=== PATIENT | female | born 1960 | race Native Hawaiian/Other Pacific Islander ===

== ENCOUNTER → 2016-07-26 | Outpatient (CLI) | payer OTHER ==
--- NOTE | 2016-07-26 10:07 | WWHP ---
DATE OF SERVICE: 07/26/2016 CHIEF COMPLAINT: The patient is here for her routine gynecologic exam. HPI: This is a 55-year-old G3, P2-0-1-2 with an LMP of 04/21/2016. The patient states her periods have become less frequent now about every 3 to 6 months. She states that she still can have menstrual-type symptoms such as bloating or cramps around the time when she thinks she is suppose to have a period. This can last up to 3 days. She states they are not very severe and they do go away within a few days. The patient has had some hot flashes, but they are not very bad. History has been obtained through a ornithology teacher who is her daughter, Catrina. She is otherwise without gynecologic complaints. PAST MEDICAL HISTORY: Chronic hypertension and elevated cholesterol. MEDICATIONS: 1. Atenolol 100 mg daily. 2. Fenofibrate 1 daily. ALLERGIES: No known drug allergies. PAST SURGICAL HISTORY: Right breast biopsy in 2002 and another breast biopsy on the left side in 2014, these were benign, colonoscopy in 07/2014 and laparoscopic cholecystectomy in 2015. 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 She has no history of STDs. SOCIAL HISTORY: She denies tobacco and drug use and rarely drinks alcohol. She has been since 1999 and this is her second marriage. She previously was a . She continues to work at a [employer] during the summer. She was originally from [place], but moved to [place] in 1999. FAMILY HISTORY: Unchanged from the 2015 H&P. REVIEW OF SYSTEMS: Weight has been stable. She denies respiratory, cardiac problems. GI: She does have history of constipation and hemorrhoids and continues to have some problems with constipation. PHYSICAL EXAM: Blood pressure 119/57. Height 5 feet 2 inches. Weight 172 pounds. Temperature 96.2, pulse 51. This is a well-developed, well-nourished female who is alert and oriented x3 in no acute distress. The patient speaks primarily Indonesian and her daughter has been translating. HEENT is within normal limits. NECK: Supple without mass or thyromegaly. CHEST AND LUNGS: Clear to auscultation. HEART: Regular rate and rhythm. Breasts are without mass or discharge. Axillary exam is negative for adenopathy. BACK: Negative for CVA tenderness. ABDOMEN: Soft, nontender, without palpable masses. PELVIC EXAM: Normal external genitalia. Cervix and vagina appear normal. There is no significant atrophy or evidence of prolapse. The uterus is midposition, nongravid size and nontender. There are no palpable adnexal masses or tenderness. Rectovaginal exam is negative for mass or tenderness and is negative for occult blood. EXTREMITIES: Nontender. IMPRESSION: A 55-year-old perimenopausal female with oligomenorrhea and mild vasomotor symptoms. PLAN: 1. Pap smear was deferred, since she had a normal one less than 2 years ago. 2. Self breast examination was discussed. 3. Obtain the results of her bilateral breast ultrasound done on 07/13/2016. This was done the day of her mammogram. 4. Osteoporosis prevention was discussed. 5. She will return in one year.
== END | disposition home or self-care (01) ==

== ENCOUNTER → 2017-10-03 | Outpatient (CLI) | payer OTHER ==
[2017-10-03 10:28] VITALS: BP 117/50; PULSE 54; TEMP 97.8; BMI 29.9
--- NOTE | 2017-10-03 11:11 | P.HPOB ---
History of Present Illness H&P Date: 10/03/17 Chief Complaint: The patient is here for her routine gynecologic exam and mammogram. This is a 57-year-old with an LMP of 2016. The patient denies any postmenopausal bleeding. She denies any significant hot flashes. She is complaining of occasional vulvar pruritus. She has noticed this over the past few days. She denies any vaginal discharge. The patient's daughter,Catrina, is translating for her since she speaks very little Bangladeshi. Review of Systems She has lost about 3 pounds since last year. Respiratory: she states she occasionally feels slightly short of breath. She denies any cardiac problems. G.I. she has had some uncomfortable hemorrhoids. Past Medical History Past Medical History: GERD/Reflux, Hyperlipidemia, Hypertension Additional Past Medical History / Comment(s): currently having abdominal pain and nausea,hx hemorrhoids,varicose veins,steroids in Jun 2015 History of Any Multi-Drug Resistant Organisms: None Reported Past Surgical History: Tubal Ligation Additional Past Surgical History / Comment(s): BREAST BX BENIGN Past Anesthesia/Blood Transfusion Reactions: No Reported Reaction Past Psychological History: No Psychological Hx Reported Smoking Status: Never smoker Past Alcohol Use History: None Reported Past Drug Use History: None Reported Additional History: She has been since 1999 and this is her 2nd marriage. She was previously a . During the summer she works at the [employer]. She was originally from [place] but moved to [place] in 1999. - Past Family History Mother Family Medical History: Diabetes Mellitus Father Family Medical History: No Reported History Additional Family Medical History / Comment(s): in [facility] Medications and Allergies Home Medications Medication Instructions Recorded Confirmed Type Atenolol [Tenormin] 100 mg PO HS 08/07/14 10/03/17 History Fenofibrate 120 mg PO DAILY 08/07/14 10/03/17 History Ergocalciferol [Vitamin D2 1 cap PO DAILY 10/03/17 10/03/17 History (DRISDOL)] Allergies Allergy/AdvReac Type Severity Reaction Status Date / Time No Known Allergies Allergy Verified 09/08/15 15:42 Exam - Vital Signs Vital signs: Vital Signs Temp Pulse BP 10/03/17 10:21 97.8 F 54 L 117/50 Intake and Output 10/02/17 10/03/1710/03/18 22:59 06:59 14:59 Other: Weight 76.657 kg Height 5'3", BMI 30. This is a well-developed well-nourished female who is alert and oriented times 3 in no acute distress. HEENT: Within normal limits. NECK: Supple without mass or thyromegaly. CHEST AND LUNGS: Clear to auscultation. HEART: Regular rate and rhythm. BREASTS: Are without mass or discharge. AXILLARY EXAM: Negative for adenopathy. BACK: Negative for CVA tenderness. ABDOMEN: Soft, nontender, without palpable masses. PELVIC EXAM: Normal external genitalia with mild atrophy and no significant erythema or lesions. Cervix and vagina appear normal with mild atrophy. There is no unusual discharge. There is no evidence of prolapse. The uterus is midposition, nongravid size and nontender. There are no palpable adnexal masses or tenderness. RECTAL EXAM: rectal exam was refused by the patient because of her hemorrhoids. EXTREMITIES: Nontender. IMPRESSION: 1. 57-year-old menopausal female with recent vulvar pruritus without any significant physical findings at this time. There is no evidence of vaginitis. PLAN: 1. Pap smear was performed. 2. Self breast examination was discussed. 3. Screening mammogram will be done today. 4. Kenalog 0.1% clean b.i.d. PRN. An e-prescription will be sent to [facility] in [place]. 5. She will return in one year.
--- NOTE | 2017-10-04 12:04 | MM ---
Reason for exam: screening (asymptomatic). Last mammogram was performed 1 year and 3 months ago. History: Patient is postmenopausal. Benign US biopsy breast VAD LT of the left breast, May 06, 2015. Benign excisional biopsy of the right breast, 2002. Physical Findings: A clinical breast exam by your physician is recommended on an annual basis and results should be correlated with mammographic findings. MG 3D Screening Mammo W/Cad Bilateral CC and MLO view(s) were taken. Prior study comparison: July 13, 2016, bilateral MG 3d diag mammo w/cad TRINO. May 06, 2015, left breast MG diagnostic mammo LT wo CAD. The breast tissue is heterogeneously dense. This may lower the sensitivity of mammography. No suspicious abnormality. Left biopsy marker is noted. No significant changes when compared with prior studies. ASSESSMENT: Negative, BI-RAD 1 RECOMMENDATION: Routine screening mammogram of both breasts in 1 year.
== END | disposition home or self-care (01) ==
LOC: WWCWWP 09:58
PROVIDERS: ATTEND Obstetrics & Gynecology
DX: Z12.31 Encounter for screening mammogram for malignant neoplasm of breast (principal)
CPT/HCPCS: 77063; 77067

== ENCOUNTER 2017-11-03 11:16 | Day surgery (SDC) | payer OTHER ==
[2017-11-01 11:03] VITALS: BMI 31.1
[~2017-11-03 11:16] MED LIST: LACTATED RINGERS 1,000 ML IV SCH; LIDOCAINE 1% 20 ML VIAL (10MG/ML) FOR IV START INTRADERMA PRN; MIDAZOLAM 2 MG/2 ML VIAL IV PRN
[2017-11-03 11:55] VITALS: TEMP 97.2
[2017-11-03] MEDS ORDERED: LIDOCAINE 1% 20 ML VIAL (10MG/ML) FOR IV START INTRADERMA ONE (11:55)
[2017-11-03] MEDS ORDERED: LIDOCAINE 1% INJ 10MG/ML (20 ML MDV) ONE (12:45)
[2017-11-03] MEDS ORDERED: PROPOFOL 10 MG/ML 20 ML VIAL IV ONE (12:45)
--- NOTE | 2017-11-03 12:48 | P.GSHP ---
History of Present Illness H&P Date: 11/03/17 Chief Complaint: Screening colonoscopy This a 57-year-old female referred from Dr. eduardo. Patient presents today for screening colonoscopy. She denies a significant GI complaints. Past Medical History Past Medical History: GERD/Reflux, Hyperlipidemia, Hypertension Additional Past Medical History / Comment(s): HAS hemorrhoids, BLEEDING. Varicose Veins. History of Any Multi-Drug Resistant Organisms: None Reported Past Surgical History: Tubal Ligation Additional Past Surgical History / Comment(s): BREAST BX BENIGN. COLONOSCOPY, EGD. Past Anesthesia/Blood Transfusion Reactions: No Reported Reaction Smoking Status: Never smoker - Past Family History Mother Family Medical History: Diabetes Mellitus Father Family Medical History: No Reported History Additional Family Medical History / Comment(s): in [facility] Medications and Allergies Home Medications Medication Instructions Recorded Confirmed Type Atenolol [Tenormin] 100 mg PO HS 08/07/14 11/03/17 History Fenofibrate 120 mg PO DAILY 08/07/14 11/03/17 History Ergocalciferol [Vitamin D2 1 cap PO Q7D 10/03/17 11/03/17 History (OPAL)] Allergies Allergy/AdvReac Type Severity Reaction Status Date / Time No Known Allergies Allergy Verified 11/01/17 10:31 Surgical - Exam Vital Signs Temp Pulse Resp BP Pulse Ox 97.2 F L 61 16 103/71 96 11/03/17 11:53 11/03/17 11:53 11/03/17 11:53 11/03/17 11:53 11/03/17 11:53 - General well developed, no distress - Eyes PERRL - ENT normal pinna - Neck no masses - Respiratory normal expansion - Cardiovascular Rhythm: regular - Abdomen Abdomen: soft, non tender Assessment and Plan Assessment: We'll perform screening colonoscopy.
--- NOTE | 2017-11-03 13:03 | P.OP ---
Date of Procedure: 11/03/17 Preoperative Diagnosis: Screening colonoscopy Postoperative Diagnosis: Normal colon Procedure(s) Performed: Colonoscopy Anesthesia: MAC Surgeon: Jacinto De Jesus Pathology: none sent Condition: stable Disposition: PACU Description of Procedure: PROCEDURE: The patient was placed on the endoscopy table in the lateral position. Digital rectal examination was performed which revealed no abnormalities. Flexible colonoscope was then placed in the patient's anus and passed throughout the entire colon. The ileocecal valve was visualized. The cecum, ascending, transverse, descending and sigmoid colon were normal. The rectum was normal as well. There were no masses, polyps or diverticula noted in the entire colon. SUMMARY OF FINDINGS: Normal colonoscopy.
[2017-11-03 13:26] VITALS: BP 125/72; PULSE 61; RESP 16
== END 2017-11-03 13:54 | disposition home or self-care (01) ==
LOC: ORWHC2ENDO 11:16
PROVIDERS: ATTEND Surgery
DX: Z12.11 Encounter for screening for malignant neoplasm of colon (principal); K21.9 Gastro-esophageal reflux disease without esophagitis; E78.5 Hyperlipidemia, unspecified; I10 Essential (primary) hypertension; K64.9 Unspecified hemorrhoids; Z79.899 Other long term (current) drug therapy
CPT/HCPCS: J2001; J2704; G0121; 45378

== ENCOUNTER → 2018-06-27 | Outpatient (CLI) | payer OTHER ==
--- NOTE | 2018-06-27 22:48 | US ---
EXAMINATION TYPE: US transvaginal DATE OF EXAM: 06/27/2018 COMPARISON: 2010 us CLINICAL HISTORY: N95.0 Post menopausal bleeding. TECHNIQUE: Transvaginal (TV). Date of LMP: 4 years prior EXAM MEASUREMENTS: Uterus: 6.7 x 2.9 x 4.2 cm Endometrial Stripe: 0.8 cm Right Ovary: 1.6 x 1.1 x 1.2 cm Left Ovary: obscured by overlying bowel/atrophy 1. Uterus: Anteverted, probable fibroid measuring 2.1 x 2.1 x 2.1cm 2. Endometrium: thick for post menopausal patient 3. Right Ovary: wnl 4. Left Ovary: obscured by overlying bowel/atrophy 5. Bilateral Adnexa: wnl 6. Posterior cul-de-sac: wnl Markedly heterogeneous uterus is seen, endometrium is poorly defined but felt thickened up to 8 mm. N o free fluid is seen in pelvic cul-de-sac. IMPRESSION: Poorly defined but suspected mildly thickened endometrium, neoplasm cannot be excluded. F urther investigation with sampling is warranted.
== END ==
LOC: RADUSWWP 15:43
PROVIDERS: ATTEND Obstetrics & Gynecology
DX: R93.89 Abnormal findings on diagnostic imaging of other specified body structures (principal)
CPT/HCPCS: 76830

== ENCOUNTER → 2018-07-16 | Outpatient (CLI) | payer OTHER ==
--- NOTE | 2018-07-16 11:45 | CT ---
EXAMINATION TYPE: CT abdomen pelvis w con DATE OF EXAM: 07/16/2018 COMPARISON: None INDICATION: Abdomen pain, uterine mass DLP: 874 mGycm, Automated exposure control for dose reduction was used. CONTRAST: 100 mL of Isovue 300. Study performed with Oral Contrast TECHNIQUE: Axial images were obtained from above the diaphragm to the pubic rami in the axial plane a t 5 mm thick sections. Reconstructed images are reviewed on the computer in the coronal plane. FINDINGS: Limited CT sections are obtained the lung bases. The lung bases are clear. CT ABDOMEN: Liver: There is moderate fatty infiltration throughout the liver. No discrete masses or cysts are baudilio dent Spleen: Normal Pancreas: Normal Adrenal glands: The adrenal glands are normal. Gallbladder: Not identified. Kidneys: No masses are evident. No hydronephrosis is present. No cysts are present. Delayed images were obtained through the kidneys, which remain unremarkable. Aorta: Normal Inferior vena cava: Normal. CT PELVIS: Loops of bowel within the abdomen and pelvis are normal. There are loops of bowel which are incom pletely distended or lack oral contrast limiting their evaluation. Appendix: Normal as visualized. Urinary bladder: Normal Genitourinary structures: Uterus and adnexa appear normal. A discrete uterine mass is not identified. Osseous structures: No suspicious lytic or sclerotic lesions. Facet degenerative changes are present. Lymphadenopathy: No suspicious enlarged lymphadenopathy is evident. IMPRESSIONS: 1. No suspicious findings for metastatic disease. Uterus appears grossly normal by CT
== END ==
LOC: RADCTMAIN 08:08
PROVIDERS: ATTEND Family Medicine
DX: R10.9 Unspecified abdominal pain (principal); R19.09 Other intra-abdominal and pelvic swelling, mass and lump; D47.2 Monoclonal gammopathy
CPT/HCPCS: 74177; Q9967

== ENCOUNTER → 2018-08-20 | Outpatient (CLI) | payer OTHER ==
--- NOTE | 2018-08-21 07:26 | USB ---
Reason for exam: clinical finding. History: Patient is postmenopausal. Benign US biopsy breast VAD LT of the left breast, May 06, 2015. Benign excisional biopsy of the right breast, 2002. Physical Findings: Nurse did not find any significant physical abnormalities on exam. US Breast Axilla LT Left axilla ultrasound demonstrated multiple lymph nodes visualized, largest measures 2.6 x 0.7 x 1.1cm. Benign appearing lymph nodes. These results were verbally communicated with the patient and result sheet given to the patient on 08/20/18. ASSESSMENT: Benign, BI-RAD 2 RECOMMENDATION: Return to routine screening mammogram schedule for both breasts. Back on schedule.
--- NOTE | 2018-08-21 07:27 | USB ---
Reason for exam: clinical finding. History: Patient is postmenopausal. Benign US biopsy breast VAD LT of the left breast, May 06, 2015. Benign excisional biopsy of the right breast, 2002. Physical Findings: Nurse did not find any significant physical abnormalities on exam. US Breast Axilla RT Right axilla ultrasound demonstrates multiple lymph nodes visualized, largest measures 1.5 x 0.9 x 1.0cm. Benign appearing lymph nodes. These results were verbally communicated with the patient and result sheet given to the patient on 08/20/18. ASSESSMENT: Benign, BI-RAD 2 RECOMMENDATION: Return to routine screening mammogram schedule for both breasts. Manage patient on a clinical basis.
== END | disposition home or self-care (01) ==
LOC: RADUSWWP 15:08
PROVIDERS: ATTEND Family Medicine
DX: N60.09 Solitary cyst of unspecified breast (principal)

== ENCOUNTER → 2018-08-20 | Outpatient (CLI) | payer OTHER ==
[2018-08-20 17:38] LABS: Basophils % (A) 1 %; Eosinophils # (A) 0.3 k/uL (0-0.7); Eosinophils % (A) 4 %; HCT 37.4 % (34.0-46.0); HGB 12.6 gm/dL (11.4-16.0); Lymphocytes # (A) 2.7 k/uL (1.0-4.8); Lymphocytes % (A) 41 %; MCH 31.3 pg (25.0-35.0); MCHC 33.6 g/dL (31.0-37.0); MCV 93.1 fL (80.0-100.0); Monocytes # (A) 0.3 k/uL (0-1.0); Monocytes % (A) 5 %; Neutrophils # (A) 3.1 k/uL (1.3-7.7); Neutrophils % (A) 47 %; Platelet Count 275 k/uL (150-450); RBC 4.01 m/uL (3.80-5.40); WBC 6.7 k/uL (3.8-10.6)
== END | disposition home or self-care (01) ==
LOC: LABWHC1 15:56
PROVIDERS: ATTEND Obstetrics & Gynecology
DX: Z01.818 Encounter for other preprocedural examination (principal); Z01.812 Encounter for preprocedural laboratory examination
CPT/HCPCS: 36415; 85025; 93005

== ENCOUNTER 2018-08-30 08:15 | Day surgery (SDC) | payer OTHER ==
[2018-08-28 14:44] VITALS: BMI 30.9
--- NOTE | 2018-08-29 18:07 | P.HPOB ---
History of Present Illness H&P Date: 08/29/18 Chief Complaint: Postmenopausal bleeding Patient is a 58-year-old female who has postmenopausal bleeding. She's had some bleeding that was noted in April and then has not had any since, however an ultrasound revealed her endometrium to be slightly thickened. She is scheduled for a D&C with hysteroscopy. Risks/benefits/alternatives were discussed with the patient in detail and all questions were answered for the patient prior to proceeding to the operative room. She does speaks limited Liberian but her daughter was present and speaks fluent Liberian and translated all of our discussion. On physical exam vital signs are stable and afebrile. Heart regular, lungs clear, extremities without pain. Abdomen soft nontender pelvic exam is otherwise unremarkable. Past Medical History Past Medical History: Diabetes Mellitus, GERD/Reflux, Hyperlipidemia, Hypertension Additional Past Medical History / Comment(s): HAS hemorrhoids, BLEEDING. Varicose Veins. History of Any Multi-Drug Resistant Organisms: None Reported Past Surgical History: Cholecystectomy Additional Past Surgical History / Comment(s): BREAST BX BENIGN. COLONOSCOPY, EGD. Past Anesthesia/Blood Transfusion Reactions: No Reported Reaction Smoking Status: Never smoker - Past Family History Mother Family Medical History: Diabetes Mellitus Father Family Medical History: No Reported History Additional Family Medical History / Comment(s): in [facility] Medications and Allergies Home Medications Medication Instructions Recorded Confirmed Type Atenolol [Tenormin] 100 mg PO HS 08/07/14 08/28/18 History Fenofibrate 120 mg PO DAILY 08/07/14 08/28/18 History Ergocalciferol [Vitamin D2 1 cap PO Q7D 10/03/17 08/28/18 History (DRISDOL)] metFORMIN HCL [Glucophage] 500 mg PO BID 08/28/18 08/28/18 History Allergies Allergy/AdvReac Type Severity Reaction Status Date / Time No Known Allergies Allergy Verified 08/28/18 14:31 Exam Osteopathic Statement: *. No significant issues noted on an osteopathic structural exam other than those noted in the History and Physical/Consult. - OBG Physical Exam Breast: both: normal (no masses) Abdomen: bowel sounds normal, no diffuse tenderness, no bruit present, no guarding noted, no hepatomegaly, no splenomegaly, no mass Vulva: both: normal Vagina: normal moisture, no discharge Cervix: no lesion, no discharge Uterus: normal size, normal contour Adnexa: both: normal Anus/Rectum: normal perianal skin, no rectal mass, no hemorrhoids, heme negative
[~2018-08-30 08:15] MED LIST changes: +DEXAMETHASONE SOD PHOSPHATE 10 MG/ML 1 ML VIAL IV ONE; +HYDROmorphone 0.5 MG/0.5 ML SYRINGE IVP PRN; +MIDAZOLAM (PF) 2 MG/2 ML VIAL IV PRN; -MIDAZOLAM 2 MG/2 ML VIAL IV PRN; +ONDANSETRON 4 MG/2 ML VIAL IVP ONE; +Pre Op ABX Message 1 EACH MISC MISCELLANE ONE; +fentaNYL (PF) 50 MCG/ML 2 ML AMP IV PRN
[2018-08-30 09:23] VITALS: TEMP 97.2
[2018-08-30 09:34] LABS: Glucose,Whole Blood 102 mg/dL (75-99)
[2018-08-30] MEDS ORDERED: SUCCINYLCHOLINE CHLORIDE 100 MG/5 ML SYR IV ONE (10:02)
[2018-08-30] MEDS ORDERED: LIDOCAINE 1% INJ 10MG/ML (20 ML MDV) ONE (10:02)
[2018-08-30] MEDS ORDERED: MIDAZOLAM 2 MG/2 ML VIAL ONE (10:02)
[2018-08-30] MEDS ORDERED: KETOROLAC 30 MG/ML 1 ML VIAL ONE (10:02)
[2018-08-30] MEDS ORDERED: fentaNYL (PF) 50 MCG/ML 2 ML AMP ONE (10:02)
[2018-08-30] MEDS ORDERED: PROPOFOL 10 MG/ML 20 ML VIAL IV ONE (10:02)
[2018-08-30 10:56] VITALS: RESP 16
--- NOTE | 2018-08-30 10:58 | P.OP ---
Date of Procedure: 08/30/18 Preoperative Diagnosis: Postmenopausal bleeding Postoperative Diagnosis: Same Procedure(s) Performed: D&C with hysteroscopy Anesthesia: SKIP Surgeon: Guru Tolliver Estimated Blood Loss (ml): 5 Pathology: other (Uterine curettings) Condition: stable Disposition: same day Operative Findings: Scant tissue noted Description of Procedure: Patient was taken to the operating suite where a general anesthetic was found be adequate. She was prepped and draped in the normal sterile fashion and placed in the dorsal lithotomy position. Initially a weighted speculum was inserted into the vagina and the anterior lip of the cervix was identified and grasped with an Allis clamp. Cervix was then dilated and sounded to 7 cm. 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 No true septum was however noted. Once this was accomplished seeing no specific pathology, sharp curettings of the endometrium were obtained and sent to pathology for evaluation. There was minimal tissue collected during this process. All tissue was placed on Telfa and sent to pathology. Instruments were then removed. Sponge, lap, needle counts were all correct 2. Patient was then taken to the recovery room in stable and satisfactory condition. Plan - Discharge Summary New Discharge Prescriptions: New Ibuprofen [Motrin] 600 mg PO Q6HR PRN #30 tab PRN Reason: Pain No Action Atenolol [Tenormin] 100 mg PO HS Fenofibrate 120 mg PO DAILY Ergocalciferol [Vitamin D2 (DRISDOL)] 1 cap PO Q7D metFORMIN HCL [Glucophage] 500 mg PO ONCE Discharge Medication List Atenolol [Tenormin] 100 mg PO HS 08/07/14 [History] Fenofibrate 120 mg PO DAILY 08/07/14 [History] Ergocalciferol [Vitamin D2 (DRISDOL)] 1 cap PO Q7D 10/03/17 [History] metFORMIN HCL [Glucophage] 500 mg PO ONCE 08/28/18 [History] Ibuprofen [Motrin] 600 mg PO Q6HR PRN #30 tab 08/30/18 [Rx] Follow up Appointment(s)/Referral(s): Guru Tolliver DO [Doctor of Osteopathic Medicine] - 1 Week Activity/Diet/Wound Care/Special Instructions: No heavy lifting, limit stairs and driving, and pelvic rest. If any high temperatures, heavy bleeding, or severe pain call my office Discharge Disposition: HOME SELF-CARE
[2018-08-30 11:58] VITALS: BP 114/69; PULSE 57
== END 2018-08-30 12:49 | disposition home or self-care (01) ==
LOC: OR 08:15
PROVIDERS: ATTEND Obstetrics & Gynecology
DX: N95.0 Postmenopausal bleeding (principal); Q51.3 Bicornate uterus; E11.9 Type 2 diabetes mellitus without complications; K21.9 Gastro-esophageal reflux disease without esophagitis; E78.5 Hyperlipidemia, unspecified; I10 Essential (primary) hypertension; Z79.84 Long term (current) use of oral hypoglycemic drugs; Z79.899 Other long term (current) drug therapy
CPT/HCPCS: 58558; 81025; 88305; J2250; J1100; J2405; J2001; J3010; J1885; J0330; J2704

== ENCOUNTER 2020-09-18 07:21 | Day surgery (SDC) | payer OTHER ==
[2020-09-15 11:18] VITALS: BMI 27.4
[~2020-09-18 07:21] MED LIST changes: -DEXAMETHASONE SOD PHOSPHATE 10 MG/ML 1 ML VIAL IV ONE; -HYDROmorphone 0.5 MG/0.5 ML SYRINGE IVP PRN; -LIDOCAINE 1% 20 ML VIAL (10MG/ML) FOR IV START INTRADERMA PRN; -MIDAZOLAM (PF) 2 MG/2 ML VIAL IV PRN; -ONDANSETRON 4 MG/2 ML VIAL IVP ONE; -Pre Op ABX Message 1 EACH MISC MISCELLANE ONE; -fentaNYL (PF) 50 MCG/ML 2 ML AMP IV PRN
[2020-09-18 07:55] LABS: Glucose,Whole Blood 85 mg/dL (75-99)
[2020-09-18 08:02] VITALS: RESP 16; TEMP 97.2
--- NOTE | 2020-09-18 08:12 | P.GSHP ---
History of Present Illness H&P Date: 09/18/20 Chief Complaint: Gastritis This a 60-year-old female presents today for EGD. She's had complaints of epigastric pain. She is being I for gastritis. Past Medical History Past Medical History: Diabetes Mellitus, GERD/Reflux, Hyperlipidemia, Hypertension, Osteoarthritis (OA) Additional Past Medical History / Comment(s): hemorrhoids, "blood clot in eye long time ago", "noise in my stomach and swelling and stomach pain", History of Any Multi-Drug Resistant Organisms: None Reported Past Surgical History: Breast Surgery, Cholecystectomy Additional Past Surgical History / Comment(s): BREAST BX BENIGN. COLONOSCOPY, EGD. Past Anesthesia/Blood Transfusion Reactions: No Reported Reaction Smoking Status: Never smoker - Past Family History Mother Family Medical History: Diabetes Mellitus Father Family Medical History: No Reported History Additional Family Medical History / Comment(s): in [facility], [place] Medications and Allergies Home Medications Medication Instructions Recorded Confirmed Type metFORMIN HCL [Glucophage] 500 mg PO BID 08/28/18 09/18/20 History Ascorbic Acid [Vitamin C] 1,000 mg PO DAILY 09/15/20 09/18/20 History Fenofibrate 160 mg PO HS 09/15/20 09/18/20 History Multivitamins, Thera [Multivitamin 1 tab PO DAILY 09/15/20 09/18/20 History (formulary)] Vitamin D(Dose Unknown) 1 tab PO DAILY 09/15/20 09/18/20 History atenoloL [Atenolol] 25 mg PO HS 09/15/20 09/18/20 History atenoloL [Atenolol] 100 mg PO HS 09/15/20 09/18/20 History Allergies Allergy/AdvReac Type Severity Reaction Status Date / Time No Known Allergies Allergy Verified 09/15/20 10:51 Surgical - Exam Vital Signs Temp Pulse Resp BP Pulse Ox 97.2 F L 53 L 16 124/59 100 09/18/20 07:56 09/18/20 07:56 09/18/20 07:56 09/18/20 07:56 09/18/20 07:56 - General well developed, well nourished, no distress - Eyes PERRL - ENT normal pinna - Neck no masses - Respiratory normal expansion - Cardiovascular Rhythm: regular - Abdomen Abdomen: soft, non tender Assessment and Plan Assessment: Epigastric abdominal pain. We'll perform EGD tonight for gastritis
[2020-09-18] MEDS ORDERED: PROPOFOL 10 MG/ML 20 ML VIAL IV ONE (08:15)
--- NOTE | 2020-09-18 08:27 | P.OP ---
Date of Procedure: 09/18/20 Preoperative Diagnosis: Gastritis Postoperative Diagnosis: Antral gastritis Procedure(s) Performed: EGD Anesthesia: MAC Surgeon: Jacinto De Jesus Pathology: other (Antrum) Condition: stable Disposition: PACU Description of Procedure: The patient's placed on the endoscopy table in the lateral position. She received IV sedation. The gastroscope placed oropharynx passed in the esophagus and stomach. Scope was placed through the pylorus. The first and second portion of duodenum appeared normal. Scope was then brought back the antrum this is mildly inflamed. A biopsies performed. Scope was reflux and remainder of the stomach appeared normal. The GE junction was at 40 cm The distal esophagus appeared normal. The proximal esophagusAppeared Normal. The scope was withdrawn for patient. There is no evidence of a hiatal hernia.
[2020-09-18 08:53] VITALS: BP 130/76; PULSE 55
== END 2020-09-18 09:56 | disposition home or self-care (01) ==
LOC: ORWHC2ENDO 07:21
PROVIDERS: ATTEND Surgery
DX: K29.70 Gastritis, unspecified, without bleeding (principal); K21.9 Gastro-esophageal reflux disease without esophagitis; E11.9 Type 2 diabetes mellitus without complications; E78.5 Hyperlipidemia, unspecified; I10 Essential (primary) hypertension; M19.90 Unspecified osteoarthritis, unspecified site; Z90.49 Acquired absence of other specified parts of digestive tract; Z98.890 Other specified postprocedural states; Z83.3 Family history of diabetes mellitus; Z79.84 Long term (current) use of oral hypoglycemic drugs; Z79.899 Other long term (current) drug therapy
CPT/HCPCS: 88305; 43239; J2704

== ENCOUNTER → 2021-12-24 | Outpatient (CLI) | payer OTHER ==
[2021-12-24 23:30] LABS: Hepatitis A Antibody IgM Nonreactive (Nonreactive); Hepatitis B Core IgM Nonreactive (Nonreactive); Hepatitis B Surface Antigen Nonreactive (Nonreactive); Hepatitis C IgG Antibody Nonreactive (Nonreactive)
[2021-12-25 03:01] LABS: HIV 2 AB Non-Reactive (Non-Reactive); HIV AB P24 Non-Reactive (Non-Reactive); HIV P24 AG Non-Reactive (Non-Reactive)
== END | disposition home or self-care (01) ==
LOC: LABWHC1 15:15
PROVIDERS: ATTEND Obstetrics & Gynecology
DX: Z11.3 Encounter for screening for infections with a predominantly sexual mode of transmission (principal); Z20.2 Contact with and (suspected) exposure to infections with a predominantly sexual mode of transmission
CPT/HCPCS: 36415; 80074; 86694; 86695; 86696; 86780; 87390

== ENCOUNTER → 2021-12-24 | Outpatient (CLI) | payer OTHER ==
--- NOTE | 2021-12-27 09:20 | MM ---
Reason for Exam: Screening (asymptomatic). Last mammogram was performed 4 year(s) and 3 month(s) ago. Patient History: Menarche at age 16. First Full-Term at age 26. Postmenopausal. 2002, Benign Excisional Biopsy on the right side. 05/06/2015, Benign Core Biopsy on the left side. Risk Values: Ana 5 year model risk: 1.7%. NCI Lifetime model risk: 9.1%. Prior Study Comparison: 05/06/2015 Left Diagnostic Mammogram, [facility]. 07/13/2016 Bilateral Diagnostic Mammogram, [facility]. 10/03/2017 Bilateral Screening Mammogram, [facility]. Tissue Density: The breast tissue is heterogeneously dense. This may lower the sensitivity of mammography. Findings: Analyzed By CAD. There is no suspicious group of microcalcifications or new suspicious mass in either breast. Overall Assessment: Negative, BI-RAD 1 Management: Screening Mammogram of both breasts in 1 year. A clinical breast exam by your physician is recommended on an annual basis and results should be correlated with mammographic findings. Electronically signed and approved by: Tomas Ordonez M.D. Radiologis
== END | disposition home or self-care (01) ==
LOC: RADMAMWWP 15:52
PROVIDERS: ATTEND Obstetrics & Gynecology
DX: Z12.31 Encounter for screening mammogram for malignant neoplasm of breast (principal); Z78.0 Asymptomatic menopausal state
CPT/HCPCS: 77063; 77067

== ENCOUNTER → 2023-08-30 | Outpatient (CLI) | payer OTHER ==
--- NOTE | 2023-08-31 15:17 | MM ---
Reason for Exam: Screening (asymptomatic). Last mammogram was performed 1 year(s) and 8 month(s) ago. Patient History: Menarche at age 16. First Full-Term at age 26. Postmenopausal. 2002, Benign Excisional Biopsy on the right side. 05/06/2015, Benign Core Biopsy on the left side. Risk Values: Ana 5 year model risk: 1.8%. NCI Lifetime model risk: 8.7%. Prior Study Comparison: 07/13/2016 Bilateral Diagnostic Mammogram, [facility]. 10/03/2017 Bilateral Screening Mammogram, [facility]. 12/24/2021 Bilateral MG 3D screening mammo w/cad, [facility]. Tissue Density: There are scattered fibroglandular densities. Findings: Analyzed By CAD. Left breast biopsy clip. There is no suspicious group of microcalcifications or new suspicious mass. Overall Assessment: Negative, BI-RAD 1 Management: Screening Mammogram of both breasts in [address] [facility] will attempt to contact patient to return for supplemental views and ultrasound if indicated. Patient should continue monthly self-breast exams. A clinical breast exam by your physician is recommended on an annual basis. This exam should not preclude additional follow-up of suspicious palpable abnormalities. Note on Ana scores and lifetime risk: 1. A Ana score greater than 3% is considered moderate risk. If this is the case, consider specialist referral to assess eligibility for a risk reducing agent. 2. If overall lifetime risk for the development of breast cancer is 20% or higher, the patient may qualify for future screening with alternating mammogram and breast MRI. Electronically signed and approved by: Mc Palencia DO
== END | disposition home or self-care (01) ==
LOC: RADMAMWWP 08:49
PROVIDERS: ATTEND Family Medicine
DX: Z12.31 Encounter for screening mammogram for malignant neoplasm of breast (principal); Z78.0 Asymptomatic menopausal state
CPT/HCPCS: 77063; 77067